=== PATIENT | male | born 1990 | race Hispanic/Latino ===

== ENCOUNTER 2016-12-22 19:19 | Inpatient (IN) | payer BC ==
[~2016-12-22] VITALS: Ht 175.3 cm; Wt 85.4 kg
[2016-12-22] VITALS (7 sets, daily range): BP systolic 125–145; BP diastolic 65–79
[~2016-12-22 19:19] MED LIST: NO HOME MEDS; NOVOLIN 70/30 SC
--- NOTE | 2016-12-22 19:40 | NUR ---
TO ROOM 15 VIA W/C. ALERT. COOPERATIVE. RESP EVEN AND NONLABORED. C/O FEELING TIRED AND SON X 4 DAYS- RAN OUT OF 70/30 INSULIN. HAS MD APPOINTMENT 12/27/16
[2016-12-22 20:09] LABS: HEMATOCRIT 47.5 % (39.0-50.0); HEMOGLOBIN 16.5 g/dl (14.0-18.0); IMMATURE GRANULOCYTES 0.9 % (0.0-1.0); MEAN CELL VOLUME 84.1 fL CALC (80.0-100.0); MEAN CORPUSCULAR HGB 29.2 pG CALC (26.0-32.0); MEAN CORPUSCULAR HGB CONC 34.7 g/L CALC (32.0-36.0); NEUT# 6.25 thou/uL (1.82-7.42); RED BLOOD COUNT 5.65 mill/uL (4.70-6.10); RED CELL DISTRI WIDTH 12.9 % (11.5-15.5)
[2016-12-22 20:46] LABS: ALBUMIN 5.1 g/dL (3.2-5.0); ALKALINE PHOSPHATASE 109 u/l (38-126); ANION GAP 37 (6-22 (CALC)); BILIRUBIN, TOTAL 0.6 mg/dL (0.0-1.4); BUN 14 mg/dL (9-20); BUN/CREATININE RATIO 13 (12-20 (CALC)); CALCIUM 10.3 mg/dL (8.4-10.2); CHLORIDE 101 mmol/l (95-108); GFR > 60 ML/MIN (>=60 (CALC)); GFR FOR AFR.AMER. > 60 ML/MIN (>=60 (CALC)); POTASSIUM 5.1 mmol/l (3.5-5.1); SGOT/AST 18 u/l (17-59); SGPT/ALT 49 u/l (21-72); SODIUM 138 mmol/l (137-146); TOTAL PROTEIN 9.2 g/dL (6.3-8.2)
[2016-12-22 20:48] LABS: CARBON DIOXIDE 5 mmol/l (22-30); GLUCOSE 610 mg/dL (75-110)
--- NOTE | 2016-12-22 22:37 | NUR ---
26 yr old male adm [id number] per stretcher from er. stood to weigh, amb to br then to bed. denies c/o. environmental monitoring specialist shows sinus rhythm. #20 lfa ns infusing @ 200cchr, insulin gtt infusing @ 4units/hr. history obtained per pt & er record. oriented to room. fall precautions initiated. urine spec sent to lab. mother retrieved from waiting room.
[2016-12-22 23:05] LABS: URINE BILIRUBIN - DIPSTICK NEGATIVE (NEGATIVE); URINE BLOOD DIPSTICK TRACE-INTACT (NEGATIVE); URINE CLARITY CLEAR; URINE COLOR YELLOW; URINE GLUCOSE - DIPSTICK >=1000 mg/dL (NEGATIVE); URINE KETONE >=80 mg/dL (NEGATIVE); URINE LEUK ESTERASE NEGATIVE (NEGATIVE); URINE NITRITE - DIPSTICK NEGATIVE (Negative); URINE PROTEIN - DIPSTICK TRACE mg/dL (NEG-TRACE); URINE SPECIFIC GRAVITY 1.025; URINE UROBILINOGEN - DIPSTICK 0.2 E.U./dL (0.2)
--- NOTE | 2016-12-22 23:30 | NUR ---
dr gonzalez updated on pts condition. orders rec'd.
[2016-12-23] VITALS (17 sets, daily range): BP systolic 96–150; BP diastolic 55–93
--- NOTE | 2016-12-23 00:05 | NUR ---
lab here. blood drawn.
[2016-12-23 00:36] LABS: ANION GAP 27 (6-22 (CALC)); BUN 13 mg/dL (9-20); BUN/CREATININE RATIO 15 (12-20 (CALC)); CALCIUM 9.2 mg/dL (8.4-10.2); CHLORIDE 110 mmol/l (95-108); CREATININE 0.8 mg/dL (0.7-1.3); GFR > 60 ML/MIN (>=60 (CALC)); GFR FOR AFR.AMER. > 60 ML/MIN (>=60 (CALC)); GLUCOSE 351 mg/dL (75-110); POTASSIUM 4.3 mmol/l (3.5-5.1); SODIUM 142 mmol/l (137-146)
[2016-12-23 00:37] LABS: CARBON DIOXIDE 9 mmol/l (22-30)
--- NOTE | 2016-12-23 01:00 | NUR ---
lab results rec'd. dr gonzalez notified.
--- NOTE | 2016-12-23 02:00 | NUR ---
awakens easily. denies c/o. monitor shows sinus rhythm. mother @ bedside.
[2016-12-23 02:45] LABS: ANION GAP 20 (6-22 (CALC)); BUN 11 mg/dL (9-20); BUN/CREATININE RATIO 16 (12-20 (CALC)); CALCIUM 8.8 mg/dL (8.4-10.2); CARBON DIOXIDE 14 mmol/l (22-30); CHLORIDE 112 mmol/l (95-108); CREATININE 0.7 mg/dL (0.7-1.3); GFR > 60 ML/MIN (>=60 (CALC)); GFR FOR AFR.AMER. > 60 ML/MIN (>=60 (CALC)); GLUCOSE 255 mg/dL (75-110); POTASSIUM 4.2 mmol/l (3.5-5.1); SODIUM 142 mmol/l (137-146)
--- NOTE | 2016-12-23 04:00 | NUR ---
awakens easily. no distress. playground monitor shows sinus rhythm. mother @ bedside.
--- NOTE | 2016-12-23 04:30 | NUR ---
lab here. blood drawn.
[2016-12-23 05:03] LABS: ANION GAP 19 (6-22 (CALC)); BUN 11 mg/dL (9-20); BUN/CREATININE RATIO 17 (12-20 (CALC)); CARBON DIOXIDE 13 mmol/l (22-30); CHLORIDE 113 mmol/l (95-108); CREATININE 0.6 mg/dL (0.7-1.3); GFR > 60 ML/MIN (>=60 (CALC)); GFR FOR AFR.AMER. > 60 ML/MIN (>=60 (CALC)); GLUCOSE 225 mg/dL (75-110); POTASSIUM 3.9 mmol/l (3.5-5.1); SODIUM 141 mmol/l (137-146)
--- NOTE | 2016-12-23 06:00 | NUR ---
no acute change in condition this shift. no c/o voiced. monitor shows sinus rhythm. mother remains @ bedside.
--- NOTE | 2016-12-23 07:15 | NUR ---
PT LAYING IN BED RESTING WITH EYES CLOSED, AROUSES EASILY TO VERBAL STIMULI, PT VERBALIZES NO COMPLAINTS, A & O X3, PERRL, BLOOD SUGAR 202, TEMP. 97.1, HR 63, RESP. 18, BP 96/59, O2 100% ON RA, LUNG SOUNDS CLEAR IN ALL RIOS, 20G IV IN RFA WITH NS & INSULIN DRIP INFUSING AT PERSCRIBED RATE, PT'S MOTHER REMAINS AT BEDSIDE, AM ASSESSMENT COMPLETE, SEE INTERVENTIONS, SAFETY MEASURES REINFORCED, CALL CUNHA WITHIN REACH
[2016-12-23 07:19] LABS: ANION GAP 17 (6-22 (CALC)); BUN 11 mg/dL (9-20); BUN/CREATININE RATIO 18 (12-20 (CALC)); CALCIUM 8.8 mg/dL (8.4-10.2); CARBON DIOXIDE 14 mmol/l (22-30); CHLORIDE 115 mmol/l (95-108); CREATININE 0.6 mg/dL (0.7-1.3); GFR > 60 ML/MIN (>=60 (CALC)); GFR FOR AFR.AMER. > 60 ML/MIN (>=60 (CALC)); GLUCOSE 197 mg/dL (75-110); POTASSIUM 3.7 mmol/l (3.5-5.1); SODIUM 142 mmol/l (137-146)
--- NOTE | 2016-12-23 08:15 | NUR ---
LAB AT BEDSIDE
--- NOTE | 2016-12-23 08:30 | NUR ---
PT LAYING IN BED AWAKE, NO S/S OF DISTRESS, REMINDED TO CALL FOR ASSISTANCE, PT'S MOM REMAINS AT BEDSIDE, CALL CUNHA WITHIN REACH
--- NOTE | 2016-12-23 08:45 | NUR ---
PT ASSISTED TO THE RESTROOM THEN BACK TO BAD, MONITORING EQUIPMENT REAPPLIED
[2016-12-23 08:52] LABS: ANION GAP 17 (6-22 (CALC)); BUN 10 mg/dL (9-20); BUN/CREATININE RATIO 18 (12-20 (CALC)); CALCIUM 8.4 mg/dL (8.4-10.2); CARBON DIOXIDE 14 mmol/l (22-30); CHLORIDE 115 mmol/l (95-108); CREATININE 0.6 mg/dL (0.7-1.3); GFR > 60 ML/MIN (>=60 (CALC)); GFR FOR AFR.AMER. > 60 ML/MIN (>=60 (CALC)); GLUCOSE 185 mg/dL (75-110); POTASSIUM 3.5 mmol/l (3.5-5.1); SODIUM 142 mmol/l (137-146)
--- NOTE | 2016-12-23 09:30 | NUR ---
PT LAYING IN BED TALKING TO FAMILY WHO ARE AT BEDSIDE, PT TAKING SIPS OF WATER, TOLERATING WELL, CALL CUNHA WITHIN REACH
--- NOTE | 2016-12-23 10:25 | NUR ---
PT RESTING WITH EYES CLOSED, AROUSES EASILY TO VERBAL STIMULI, MOTHER REMAINS AT BEDSIDE, PT VERBALIZES NO COMPLAINTS, INSULIN DRIP PLACED ON HOLD AT THIS TIME, CALL CUNHA WITHIN REACH
[2016-12-23 10:52] LABS: ANION GAP 15 (6-22 (CALC)); BUN 10 mg/dL (9-20); BUN/CREATININE RATIO 19 (12-20 (CALC)); CALCIUM 8.5 mg/dL (8.4-10.2); CARBON DIOXIDE 16 mmol/l (22-30); CHLORIDE 114 mmol/l (95-108); CREATININE 0.5 mg/dL (0.7-1.3); GFR > 60 ML/MIN (>=60 (CALC)); GFR FOR AFR.AMER. > 60 ML/MIN (>=60 (CALC)); GLUCOSE 172 mg/dL (75-110); POTASSIUM 3.4 mmol/l (3.5-5.1); SODIUM 143 mmol/l (137-146)
--- NOTE | 2016-12-23 11:35 | NUR ---
SETUP ASSISTANCE PROVIDED WITH LUNCH TRAY, PT SHOWS NO S/S OF DISTRESS, PT'S MOTHER REMAINS AT BEDSIDE, CALL CUNHA WITHIN REACH
--- NOTE | 2016-12-23 12:15 | NUR ---
PT LAYING IN BED RESTING WITH EYES CLOSED, AROUSES EASILY TO VERBAL STIMULI, TOLERATED LUNCH WELL, CALL CUNHA WITHIN REACH
--- NOTE | 2016-12-23 12:40 | NUR ---
DR WEINER AT BEDSIDE DISCUSSING PLAN OF CARE
--- NOTE | 2016-12-23 14:44 | NUR ---
PT RESTING WATCHING TV, PT VERBALIZES NO COMPLAINTS, MOTHER REMAINS AT BEDSIDE, CALL CUNHA WITHIN REACH
--- NOTE | 2016-12-23 16:20 | NUR ---
REPORT RECEIVED FROM BENJAMIN IN ICU, PT ARRIVED ON UNIT VIA W/C, ALERT AND ORIENTED X 3, NO C/O DISCOMFORT, SETTLED IN ROOM AND ORIENTED TO CALL CUNHA, FAMILY MEMBERS AT BEDSIDE.
--- NOTE | 2016-12-23 16:30 | NUR ---
DR WEINER CALLED TO ADDRESS INSULIN ORDERS, ORDERS RECEIVED.
--- NOTE | 2016-12-23 20:57 | NUR ---
NOTIFED OF PT BS TO BE 412 AT THIS TIME;NEW ORDERS RECEIVED
--- NOTE | 2016-12-23 21:20 | NUR ---
PT RESTING IN SEMI FOWLERS POSITION WITH FAMILY AT BEDSIDE;PT DENIES ANY PAIN OR DISCOMFORTS;RESPIRATIONS EVEN AND UNLABORED ON RA;TELE MONITOR IN PLACE READING SR 65;ASSESSMENT COMPLETED;900CC OF CLEAR,YELLOW URINE OBTAINED;IV FLUIDS INFUSING WELL TO LAC;SKIN INTACT;PT RE-EDUCATED ON ROOM AND CALL LIGHT SYSTEM AND VERBALIZES UNDERSTANDING;PT DENIES ANY NEEDS AT THIS TIME;SAFTEY PRECAUTIONS REINFORCED;BED IN LOWEST POSITION WITH CALL LIGHT IN REACH;WILL CONTINUE TO MONITOR
[2016-12-23 22:16] LABS: ANION GAP 17 (6-22 (CALC)); BUN 9 mg/dL (9-20); BUN/CREATININE RATIO 14 (12-20 (CALC)); CARBON DIOXIDE 17 mmol/l (22-30); CHLORIDE 105 mmol/l (95-108); CREATININE 0.6 mg/dL (0.7-1.3); GFR > 60 ML/MIN (>=60 (CALC)); GFR FOR AFR.AMER. > 60 ML/MIN (>=60 (CALC)); GLUCOSE 331 mg/dL (75-110); POTASSIUM 3.4 mmol/l (3.5-5.1); SODIUM 136 mmol/l (137-146)
--- NOTE | 2016-12-24 | NUR ---
PT RESTING IN SUPINE POSITION WITH FAMILY AT BEDSIDE;IV FLUIDS INFUSING WELL TO LAC;TELE MONITOR IN PLACE;PT DENIES ANY PAIN OR NEEDS AT THIS TIME;BED IN LOWEST POSITION WITH CALL LIGHT IN REACH;WILL CONTINUE TO MONITOR
[2016-12-24 00:25] VITALS: BP 104/64
[2016-12-24 04:35] VITALS: BP 105/62
[2016-12-24 05:07] LABS: ANION GAP 13 (6-22 (CALC)); BUN 8 mg/dL (9-20); BUN/CREATININE RATIO 15 (12-20 (CALC)); CALCIUM 8.8 mg/dL (8.4-10.2); CARBON DIOXIDE 20 mmol/l (22-30); CHLORIDE 109 mmol/l (95-108); CREATININE 0.5 mg/dL (0.7-1.3); GFR > 60 ML/MIN (>=60 (CALC)); GFR FOR AFR.AMER. > 60 ML/MIN (>=60 (CALC)); GLUCOSE 116 mg/dL (75-110); POTASSIUM 2.7 mmol/l (3.5-5.1); SODIUM 139 mmol/l (137-146)
--- NOTE | 2016-12-24 05:40 | NUR ---
PT APPEARS TO BE SLEEPING AT THIS TIME WITH FAMILY AT BEDSIDE;NO S/S OF DISTRESS NOTED;RESPIRATIONS EVEN AND UNLABORED ON RA;TELE MONITOR IN PLACE;IV FLUIDS INFUSING WELL TO LAC;BED IN LOWEST POSITION WITH CALL LIGHT IN REACH;WILL CONTINUE TO MONITOR
--- NOTE | 2016-12-24 07:05 | NUR ---
REPORT RECIEVED FROM MACKENZIE WAGONER; PT RESTING IN BED; NO S/S OF DISTRESS NOTED; PT DENIES ANY NEEDS AT THIS TIME; FAMILY AT BEDSIDE; IVF INFUSING AT PRESCRIBED RATE; IV SITE APPEARS HEALTHY AT THIS TIME; CALL LIGHT WITHIN REACH; WILL CONTINUE TO MONITOR
[2016-12-24 07:55] VITALS: BP 105/64
[2016-12-24 10:17] VITALS: BP 111/63
[2016-12-24] MEDS ORDERED: NOVOLIN 70/30 SC (11:30)
--- NOTE | 2016-12-24 12:00 | NUR ---
PT SITTING UP IN BED; NO S/S OF DISTRESS NOTED; FAMILY AT BEDSIDE; PT ENCOURAGED TO CALL FOR ANY ASSISTANCE NEEDED; CALL LIGHT WITHIN REACH; WILL CONTINUE TO MONITOR
--- NOTE | 2016-12-24 18:14 | NUR ---
Discharge instructions given. Patient verbalizes understanding of same. Discharged in stable condition via Ambulatory to Home with family. All belongings sent with pt.
== END 2016-12-24 18:19 | disposition home or self-care (01) | DRG 639 ==
LOC: ENPENDDIS → ED 19:19 → ED-I 21:00 → ED 22:17 → ICU 22:18 → UNDODEPER 12-23 04:44 → MS2 12-23 16:20
PROVIDERS: Emergency Medicine; ADMIT Internal Medicine; ATTEND Internal Medicine
DX: E13.10 Other specified diabetes mellitus with ketoacidosis without coma (principal); E87.6 Hypokalemia; Z79.4 Long term (current) use of insulin; Z91.14 Patient's other noncompliance with medication regimen

== ENCOUNTER 2022-01-22 02:13 | Emergency (ER) | payer BC ==
[~2022-01-22] VITALS: Ht 175.3 cm; Wt 111.4 kg
[2022-01-22 02:36] LABS: IMMATURE GRANULOCYTES 0.4 % (0.0-5.0); MEAN CELL VOLUME 84.2 fL CALC (80.0-100.0); MEAN CORPUSCULAR HGB 28.7 pG CALC (26.0-32.0); MEAN CORPUSCULAR HGB CONC 34.1 g/dL CAL (32.0-36.0); NEUT# 8.93 thou/uL (1.82-7.42); RED BLOOD COUNT 4.87 mill/uL (4.70-6.10); RED CELL DISTRI WIDTH 12.3 % (11.5-15.5)
[2022-01-22] MEDS ORDERED: NOVOLIN R100 UNIT/M (02:43)
[2022-01-22] MEDS ORDERED: LEVEMIR100 UNIT SC (02:46)
[2022-01-22 02:52] LABS: ALBUMIN 4.7 g/dL (3.2-5.0); ALKALINE PHOSPHATASE 83 u/l (38-126); BILIRUBIN, TOTAL 0.4 mg/dL (0.0-1.4); BUN 16 mg/dL (9-20); BUN/CREATININE RATIO 14 (12-20 (CALC)); CARBON DIOXIDE 22 mmol/l (22-30); CHLORIDE 100 mmol/l (95-108); CREATININE 1.1 mg/dL (0.7-1.3); GFR > 60 ML/MIN (>=60 (CALC)); GFR FOR AFR.AMER. > 60 ML/MIN (>=60 (CALC)); SODIUM 138 mmol/l (137-146); TOTAL PROTEIN 8.1 g/dL (6.3-8.2)
[2022-01-22 02:54] LABS: ANION GAP 20 (6-22 (CALC)); SGOT/AST 37 u/l (17-59)
[2022-01-22 04:29] LABS: URINE BILIRUBIN - DIPSTICK NEGATIVE (NEGATIVE); URINE BLOOD DIPSTICK NEGATIVE (NEGATIVE); URINE COLOR YELLOW; URINE GLUCOSE - DIPSTICK >=1000 mg/dL (NEGATIVE); URINE KETONE NEGATIVE (NEGATIVE); URINE LEUK ESTERASE NEGATIVE (NEGATIVE); URINE PROTEIN - DIPSTICK NEGATIVE (NEG-TRACE); URINE UROBILINOGEN - DIPSTICK 0.2 E.U./dL (0.2)
[2022-01-22 04:36] LABS: URINE NITRITE - DIPSTICK NEGATIVE (Negative)
[2022-01-22] MEDS ORDERED: ULTRAM50 M1 PO (05:29)
[2022-01-22 05:41] VITALS: BP 130/74
[2022-01-22 06:37] VITALS: BP 130/74
== END 2022-01-22 06:38 | disposition home or self-care (01) | DRG 552 ==
LOC: ED 02:13
PROVIDERS: Emergency Medicine
DX: S23.3XXA Sprain of ligaments of thoracic spine, initial encounter (principal); N28.1 Cyst of kidney, acquired; W01.0XXA Fall on same level from slipping, tripping and stumbling without subsequent striking against object, initial encounter; Y92.009 Unspecified place in unspecified non-institutional (private) residence as the place of occurrence of the external cause
CPT/HCPCS: Q9967